=== PATIENT | male | born 1960 | race Caucasian/White ===

== ENCOUNTER 2019-11-09 10:06 | Day surgery (SDC) | payer BC ==
[2019-11-09 11:00] VITALS: BMI 34.8
[2019-11-09 12:28] VITALS: TEMP 98.2
[2019-11-09 13:53] VITALS: BP 110/58; PULSE 78
--- NOTE | 2019-11-10 11:21 | PATH ---
Surgical Pathology Report Patient Name: GORDO VEGA [facility]. Rec. #: [id number] /Age/Gender: 1960 (Age: 59) / M Account: [id number] Location: U-ENDOSCOPY Taken: 11/09/2019 Received: 11/09/2019 Reported: 11/10/2019 Physicians: Umberto Saini M.D. Specimen(s) Received A: RECTAL POLYPS B: CECAL POLYP Clinical History Rectal bleeding, history of colon polyp Postoperative diagnosis: Polyps, diverticulosis Final Diagnosis A. RECTAL POLYPS, POLYPECTOMY: HYPERPLASTIC POLYP, TWO FRAGMENTS. B. CECAL POLYP, POLYPECTOMY: TUBULAR ADENOMA. Electronically Signed Leandro Landeros M.D. Gross Description A. Received in formalin, labeled "biopsy rectal polyps" are 3 gale, irregular portions of soft tissue averaging 0.3 cm. in greatest dimension. The specimens are submitted in toto in one cassette. B. Received in formalin, labeled "biopsy cecal polyp" are 3 gale, irregular portions of soft tissue ranging from 0.2-0.4 cm. in greatest dimension. The specimens are submitted in toto in one cassette. DL/11/09/2019 saudi11/09/2019
== END 2019-11-09 13:18 | disposition home or self-care (01) ==
LOC: JASU-ENDO 10:06
PROVIDERS: ATTEND Internal Medicine Gastroenterology
PROC: 0DBP8ZX Excision of Rectum, Via Natural or Artificial Opening Endoscopic, Diagnostic (ICD-10-PCS; 2019-11-09)
PROC: 0DBH8ZX Excision of Cecum, Via Natural or Artificial Opening Endoscopic, Diagnostic (ICD-10-PCS; principal; 2019-11-09 11:00)
DX: Z12.11 Encounter for screening for malignant neoplasm of colon (principal); D12.0 Benign neoplasm of cecum; K62.1 Rectal polyp; K57.30 Diverticulosis of large intestine without perforation or abscess without bleeding; K64.8 Other hemorrhoids
CPT/HCPCS: 88305-TC